=== PATIENT | male | born 1955 | race Caucasian/White ===

== ENCOUNTER 2023-02-16 06:59 | Emergency (ER) | payer MEDICARE ==
[2023-02-16] MEDS ORDERED: LORazepam 2 MG/ML SYR.(CARPUJECT) ONE ×2 (07:28→10:11)
[2023-02-16] MEDS ORDERED: dilTIAZem 25 MG/5 ML VIAL ONE (07:29)
[2023-02-16 07:38] LABS: #Basophils 0.1 thou/uL (0.0-0.2); #Eosinphils 0.1 thou/uL (0.0-0.7); #Monocytes 0.6 thou/uL (0.11-0.59); #Neutrophils 2.5 thou/uL (1.40-6.50); %Basophils 1.6 % (0.0-1.0); %Eosinophils 2.4 % (0.0-10.0); %Lymphocytes 42.3 % (21.0-51.0); %Monocytes 9.9 % (0.0-10.0); %Neutrophils 43.1 % (42.0-75.0); Mean Corpuscular Hemoglobin 34.3 pg (27.0-31.0); Mean Corpuscular Volume 100.9 fl (78.0-98.0); Mean Platelet Volume 9.4 fL (7.4-10.4); Platelet Count 201 10x3/uL (130-400); RBC Distribution Width 17.3 % (11.5-14.5); Red Blood Cell (RBC) Count 4.66 mill/uL (4.70-6.10); White Blood Cell (WBC) Count 5.7 10x3/uL (4.8-10.8)
[2023-02-16] MEDS ORDERED: Apixaban 5 MG TAB PO SCH (07:45)
[2023-02-16 08:05] LABS: ALT (SGPT) 122 U/L (8-55); AST (SGOT) 181 U/L (5-34); Albumin 3.7 g/dL (3.4-4.8); Alcohol 267.1 mg/dL (Less than 10); Alkaline Phosphatase 112 U/L (40-110); Anion Gap 17 mmol/L (10-20); BUN (Urea Nitrogen) 6 mg/dL (8.4-25.7); Bilirubin, Total 0.5 mg/dL (0.2-1.2); Calc. Creatinine Clearance 0 mL/min (70-130); Calcium 8.6 mg/dL (7.8-10.44); Carbon Dioxide 21 mmol/L (23-31); Chloride 108 mmol/L (98-107); Estimated GFR 100; Globulin 3.4 g/dL (2.4-3.5); Glucose 178 mg/dL (80-115); Potassium 3.9 mmol/L (3.5-5.1); Protein, Total 7.1 g/dL (5.8-8.1); Sodium 142 mmol/L (136-145)
[2023-02-16 08:07] LABS: Troponin I 0.065 ng/mL (< 0.028)
[2023-02-16] MEDS ORDERED: Aspirin 81 mg Enteric Coated Tablet ONE (10:56)
[2023-02-16] MEDS ORDERED: dilTIAZem 125 MG/25 ML SDV ONE (10:56)
== END 2023-02-16 11:57 | disposition short-term general hospital (02) ==
LOC: ERS 06:59
DX: I48.20 Chronic atrial fibrillation, unspecified (principal); F10.239 Alcohol dependence with withdrawal, unspecified; I10 Essential (primary) hypertension; F17.220 Nicotine dependence, chewing tobacco, uncomplicated; Y90.8 Blood alcohol level of 240 mg/100 ml or more
CPT/HCPCS: 71045; 80053; 80307; 83880; 84484; 85025; 93005; J2060; 36415

== ENCOUNTER 2023-07-24 09:50 | Outpatient (CLI) | payer MEDICARE | END 2023-07-24 09:51 | disposition home or self-care (01) | LOC: SCSRAD 09:50 | PROVIDERS: ATTEND Physician Assistant | DX: R05.3 Chronic cough (principal) | CPT/HCPCS: 71046 ==

== ENCOUNTER 2024-04-06 12:18 | Inpatient (IN) | payer MEDICARE ==
[2024-04-06 13:26] LABS: #Basophils 0.08 10x3/uL (0.0-0.2); %Basophils 1.1 % (0.0-1.0); %Eosinophils 5.2 % (0.0-10.0); %Lymphocytes 16.9 % (21.0-51.0); %Neutrophils 66.4 % (42.0-75.0); Hematocrit 37.6 % (42.0-52.0); Hemoglobin 12.3 g/dL (14.0-18.0); Mean Corpuscular HGB CONC 32.7 g/dL (32.0-36.0); Mean Corpuscular Hemoglobin 30.9 pg (27.0-31.0); Mean Corpuscular Volume 94.5 fL (78.0-98.0); Mean Platelet Volume 9.8 fL (7.4-10.4); Platelet Count 267 10x3/uL (130-400); RBC Distribution Width 15.1 % (11.5-14.5); Red Blood Cell (RBC) Count 3.98 mill/uL (4.70-6.10)
[2024-04-06] MEDS ORDERED: dilTIAZem 125 MG/25 ML SDV ONE (13:40)
[2024-04-06] MEDS ORDERED: Nitroglycerin 0.4 MG TAB 1 EACH ONE (13:40)
[2024-04-06] MEDS ORDERED: Enoxaparin 100 MG (1 mL) SYRINGE ONE (13:40)
[2024-04-06] MEDS ORDERED: Furosemide 40 MG (4 mL) VIAL ONE (13:40)
[2024-04-06] MEDS ORDERED: Aspirin Chewable 81 MG TAB ONE (13:40)
[2024-04-06 13:42] LABS: ALT (SGPT) 15 U/L (Less than 45); AST (SGOT) 33 U/L (11-34); Albumin 3.6 g/dL (3.1-4.5); Alkaline Phosphatase 87 U/L (40-110); Anion Gap 13 mmol/L (10-20); BUN (Urea Nitrogen) 8 mg/dL (8.4-25.7); Bilirubin, Total 1.1 mg/dL (0.3-1.2); Calc. Creatinine Clearance 0 mL/min (70-130); Calcium 8.8 mg/dL (7.8-10.44); Carbon Dioxide 25 mmol/L (23-31); Chloride 101 mmol/L (98-107); Estimated GFR 103; Globulin 3.8 g/dL (2.4-3.5); Glucose 120 mg/dL (80-115); Potassium 3.4 mmol/L (3.5-5.1); Protein, Total 7.4 g/dL (5.8-8.1); Sodium 136 mmol/L (136-145)
[2024-04-06 13:45] LABS: Troponin I 0.059 ng/mL (< 0.028)
[2024-04-06] MEDS ORDERED: Ondansetron ODT 4 MG TAB PO PRN (16:17)
[2024-04-06] MEDS ORDERED: Bisacodyl 5 MG TAB PO PRN (16:17)
[2024-04-06 17:24] LABS: Phosphorus 3.9 mg/dL (2.5-4.5)
[2024-04-06 17:25] LABS: Magnesium 1.6 mg/dL (1.6-2.6)
[2024-04-06 17:31] LABS: Troponin I 0.061 ng/mL (< 0.028)
[2024-04-06 18:00] LABS: Cardiac Risk 3.7 (Less than 4.5)
[2024-04-06] MEDS: Furosemide 40 MG (4 mL) VIAL SLOW IVP SCH (19:39)
[2024-04-06] MEDS: Carvedilol 6.25 MG TAB PO SCH (19:39)
[2024-04-06 19:43] VITALS: BMI 28.8
[2024-04-06 20:08] LABS: Hemoglobin A1c 5.6 % (4.0-6.0)
[2024-04-06 20:17] LABS: Troponin I 0.049 ng/mL (< 0.028)
[2024-04-06] MEDS: Acetaminophen 325 MG TAB PO PRN (21:07)
[2024-04-07] MEDS: Metoclopramide HCl 10 MG (2 mL) VIAL IVP SCH (03:15)
[2024-04-07] MEDS: hydrOXYzine 25 MG TAB PO SCH ×2 (03:15→22:07)
[2024-04-07] MEDS: Furosemide 40 MG (4 mL) VIAL SLOW IVP SCH (03:15)
[2024-04-07 03:18] LABS: #Basophils 0.09 10x3/uL (0.0-0.2); %Basophils 1.2 % (0.0-1.0); %Eosinophils 4.7 % (0.0-10.0); %Lymphocytes 15.6 % (21.0-51.0); %Monocytes 8.7 % (0.0-10.0); %Neutrophils 69.4 % (42.0-75.0); Hematocrit 35.8 % (42.0-52.0); Hemoglobin 11.5 g/dL (14.0-18.0); Mean Corpuscular HGB CONC 32.1 g/dL (32.0-36.0); Mean Corpuscular Hemoglobin 30.8 pg (27.0-31.0); Mean Platelet Volume 9.6 fL (7.4-10.4); Platelet Count 296 10x3/uL (130-400); RBC Distribution Width 15.2 % (11.5-14.5); Red Blood Cell (RBC) Count 3.73 mill/uL (4.70-6.10)
[2024-04-07 03:42] LABS: Troponin I 0.057 ng/mL (< 0.028)
[2024-04-07 03:43] LABS: ALT (SGPT) 13 U/L (Less than 45); AST (SGOT) 29 U/L (11-34); Albumin 3.3 g/dL (3.1-4.5); Alkaline Phosphatase 85 U/L (40-110); Anion Gap 15 mmol/L (10-20); BUN (Urea Nitrogen) 9 mg/dL (8.4-25.7); Bilirubin, Total 0.9 mg/dL (0.3-1.2); Calc. Creatinine Clearance 132 mL/min (70-130); Calcium 8.4 mg/dL (7.8-10.44); Carbon Dioxide 27 mmol/L (23-31); Chloride 99 mmol/L (98-107); Estimated GFR 98; Globulin 3.5 g/dL (2.4-3.5); Glucose 110 mg/dL (80-115); Protein, Total 6.8 g/dL (5.8-8.1); Sodium 138 mmol/L (136-145)
[2024-04-07] MEDS: Potassium Chloride 20 MEQ TAB PO ONE (04:05)
[2024-04-07] MEDS: Potassium Bicarbonate/Cit Ac 20 MEQ TAB PO SCH (04:30)
[2024-04-07 04:48] LABS: Influenza A by NAA Not Detected (NotDetected); Influenza B by NAA Not Detected (NotDetected); SARS-CoV-2 NAA Rapid Test Not Detected (NotDetected)
[2024-04-07] MEDS: Apixaban 5 MG TAB PO SCH (08:56)
[2024-04-07] MEDS: Empagliflozin 10 MG TAB PO SCH (08:56)
[2024-04-07] MEDS ORDERED: Dapagliflozin Propanediol 10 MG TAB PO SCH (09:00)
[2024-04-07] MEDS: Potassium Chloride 20 MEQ TAB PO SCH (10:55)
[2024-04-07] MEDS: Magnesium Oxide 400 MG TAB PO SCH (20:30)
[2024-04-08 05:41] LABS: #Basophils 0.09 10x3/uL (0.0-0.2); %Basophils 1.2 % (0.0-1.0); %Eosinophils 6.4 % (0.0-10.0); %Lymphocytes 21.6 % (21.0-51.0); %Monocytes 11.9 % (0.0-10.0); %Neutrophils 58.5 % (42.0-75.0); Hematocrit 36.9 % (42.0-52.0); Hemoglobin 12.1 g/dL (14.0-18.0); Mean Corpuscular HGB CONC 32.8 g/dL (32.0-36.0); Mean Corpuscular Hemoglobin 30.9 pg (27.0-31.0); Mean Corpuscular Volume 94.1 fL (78.0-98.0); Mean Platelet Volume 9.8 fL (7.4-10.4); Platelet Count 293 10x3/uL (130-400); Red Blood Cell (RBC) Count 3.92 mill/uL (4.70-6.10)
[2024-04-08 06:04] LABS: ALT (SGPT) 11 U/L (Less than 45); AST (SGOT) 27 U/L (11-34); Albumin 3.3 g/dL (3.1-4.5); Alkaline Phosphatase 82 U/L (40-110); Anion Gap 14 mmol/L (10-20); BUN (Urea Nitrogen) 8 mg/dL (8.4-25.7); Bilirubin, Total 0.8 mg/dL (0.3-1.2); Calc. Creatinine Clearance 138 mL/min (70-130); Calcium 8.6 mg/dL (7.8-10.44); Carbon Dioxide 27 mmol/L (23-31); Chloride 101 mmol/L (98-107); Estimated GFR 100; Globulin 3.7 g/dL (2.4-3.5); Glucose 103 mg/dL (80-115); Magnesium 1.9 mg/dL (1.6-2.6); Potassium 2.9 mmol/L (3.5-5.1); Sodium 139 mmol/L (136-145)
[2024-04-08] MEDS: Potassium Chloride 20 MEQ TAB PO SCH ×2 (08:49→17:02)
[2024-04-08] MEDS: Amiodarone 200 MG TAB PO SCH ×2 (10:02→20:02)
[2024-04-08] MEDS: Melatonin 3 MG TAB PO PRN (23:38)
[2024-04-09 05:22] LABS: #Basophils 0.11 10x3/uL (0.0-0.2); %Basophils 1.4 % (0.0-1.0); %Eosinophils 8.3 % (0.0-10.0); %Lymphocytes 22.1 % (21.0-51.0); %Neutrophils 58.6 % (42.0-75.0); Hemoglobin 12.4 g/dL (14.0-18.0); Mean Corpuscular HGB CONC 33.5 g/dL (32.0-36.0); Mean Corpuscular Volume 92.5 fL (78.0-98.0); Mean Platelet Volume 9.8 fL (7.4-10.4); Platelet Count 324 10x3/uL (130-400); RBC Distribution Width 14.6 % (11.5-14.5)
[2024-04-09 05:53] LABS: ALT (SGPT) 12 U/L (Less than 45); AST (SGOT) 27 U/L (11-34); Albumin 3.3 g/dL (3.1-4.5); Alkaline Phosphatase 84 U/L (40-110); Anion Gap 16 mmol/L (10-20); BUN (Urea Nitrogen) 11 mg/dL (8.4-25.7); Bilirubin, Total 0.8 mg/dL (0.3-1.2); Calc. Creatinine Clearance 114 mL/min (70-130); Calcium 8.4 mg/dL (7.8-10.44); Carbon Dioxide 25 mmol/L (23-31); Chloride 100 mmol/L (98-107); Estimated GFR 95; Globulin 3.8 g/dL (2.4-3.5); Glucose 103 mg/dL (80-115); Potassium 3.1 mmol/L (3.5-5.1); Protein, Total 7.1 g/dL (5.8-8.1); Sodium 138 mmol/L (136-145)
[2024-04-09] MEDS: Potassium Chloride 20 MEQ TAB PO SCH (08:19)
[2024-04-09] MEDS: Ibuprofen 800 MG TAB PO PRN (17:54)
[2024-04-10] MEDS: hydrOXYzine 25 MG TAB PO SCH (04:21)
[2024-04-10 06:02] LABS: #Basophils 0.12 10x3/uL (0.0-0.2); %Basophils 1.4 % (0.0-1.0); %Eosinophils 8.1 % (0.0-10.0); %Lymphocytes 18.4 % (21.0-51.0); %Monocytes 7.7 % (0.0-10.0); %Neutrophils 63.8 % (42.0-75.0); Hematocrit 42.3 % (42.0-52.0); Hemoglobin 13.2 g/dL (14.0-18.0); Mean Corpuscular HGB CONC 31.2 g/dL (32.0-36.0); Mean Corpuscular Hemoglobin 29.7 pg (27.0-31.0); Mean Corpuscular Volume 95.3 fL (78.0-98.0); Mean Platelet Volume 9.7 fL (7.4-10.4); Platelet Count 377 10x3/uL (130-400); RBC Distribution Width 14.6 % (11.5-14.5); Red Blood Cell (RBC) Count 4.44 mill/uL (4.70-6.10)
[2024-04-10 06:31] LABS: ALT (SGPT) 13 U/L (Less than 45); AST (SGOT) 34 U/L (11-34); Albumin 3.7 g/dL (3.1-4.5); Alkaline Phosphatase 93 U/L (40-110); Anion Gap 17 mmol/L (10-20); BUN (Urea Nitrogen) 12 mg/dL (8.4-25.7); Bilirubin, Total 0.6 mg/dL (0.3-1.2); Calc. Creatinine Clearance 99 mL/min (70-130); Calcium 8.8 mg/dL (7.8-10.44); Carbon Dioxide 26 mmol/L (23-31); Chloride 98 mmol/L (98-107); Estimated GFR 88; Globulin 4.3 g/dL (2.4-3.5); Glucose 102 mg/dL (80-115); Potassium 3.2 mmol/L (3.5-5.1); Sodium 138 mmol/L (136-145)
[2024-04-11 06:34] LABS: #Basophils 0.14 10x3/uL (0.0-0.2); %Basophils 1.8 % (0.0-1.0); %Eosinophils 9.9 % (0.0-10.0); %Lymphocytes 21.9 % (21.0-51.0); %Monocytes 10.3 % (0.0-10.0); %Neutrophils 55.6 % (42.0-75.0); Hematocrit 39.5 % (42.0-52.0); Hemoglobin 12.9 g/dL (14.0-18.0); Mean Corpuscular HGB CONC 32.7 g/dL (32.0-36.0); Mean Corpuscular Hemoglobin 30.9 pg (27.0-31.0); Mean Corpuscular Volume 94.5 fL (78.0-98.0); Mean Platelet Volume 9.6 fL (7.4-10.4); Platelet Count 354 10x3/uL (130-400); RBC Distribution Width 14.7 % (11.5-14.5); Red Blood Cell (RBC) Count 4.18 mill/uL (4.70-6.10)
[2024-04-11 06:52] LABS: ALT (SGPT) 14 U/L (Less than 45); AST (SGOT) 53 U/L (11-34); Albumin 3.5 g/dL (3.1-4.5); Alkaline Phosphatase 91 U/L (40-110); Anion Gap 14 mmol/L (10-20); BUN (Urea Nitrogen) 15 mg/dL (8.4-25.7); Bilirubin, Total 0.5 mg/dL (0.3-1.2); Calc. Creatinine Clearance 96 mL/min (70-130); Calcium 8.9 mg/dL (7.8-10.44); Carbon Dioxide 25 mmol/L (23-31); Chloride 101 mmol/L (98-107); Estimated GFR 83; Globulin 4.2 g/dL (2.4-3.5); Glucose 124 mg/dL (80-115); Potassium 3.4 mmol/L (3.5-5.1); Protein, Total 7.7 g/dL (5.8-8.1); Sodium 137 mmol/L (136-145)
[2024-04-11] MEDS ORDERED: Lidocaine 1% PF 5 ML VIAL ONE (09:50)
[2024-04-11] MEDS ORDERED: PROPOFOL 200 MG/20 ML VIAL ONE (09:50)
[2024-04-11] MEDS: Furosemide 20 MG TAB PO SCH (11:52)
[2024-04-11] MEDS: Valsartan 80 MG TAB PO SCH (11:53)
[2024-04-11] MEDS: Atorvastatin Calcium 40 MG TAB PO SCH (20:53)
[2024-04-12 05:53] LABS: %Basophils 1.2 % (0.0-1.0); %Eosinophils 7.7 % (0.0-10.0); %Lymphocytes 23.6 % (21.0-51.0); %Monocytes 8.9 % (0.0-10.0); Hematocrit 38.9 % (42.0-52.0); Hemoglobin 12.5 g/dL (14.0-18.0); Mean Corpuscular HGB CONC 32.1 g/dL (32.0-36.0); Mean Corpuscular Volume 93.3 fL (78.0-98.0); Mean Platelet Volume 9.6 fL (7.4-10.4); Platelet Count 366 10x3/uL (130-400); RBC Distribution Width 14.6 % (11.5-14.5); Red Blood Cell (RBC) Count 4.17 mill/uL (4.70-6.10)
[2024-04-12 06:11] LABS: ALT (SGPT) 14 U/L (Less than 45); AST (SGOT) 33 U/L (11-34); Albumin 3.5 g/dL (3.1-4.5); Alkaline Phosphatase 87 U/L (40-110); Anion Gap 14 mmol/L (10-20); BUN (Urea Nitrogen) 14 mg/dL (8.4-25.7); Bilirubin, Total 0.7 mg/dL (0.3-1.2); Calc. Creatinine Clearance 106 mL/min (70-130); Carbon Dioxide 23 mmol/L (23-31); Chloride 103 mmol/L (98-107); Estimated GFR 94; Globulin 4.1 g/dL (2.4-3.5); Glucose 104 mg/dL (80-115); Potassium 3.7 mmol/L (3.5-5.1); Protein, Total 7.6 g/dL (5.8-8.1); Sodium 136 mmol/L (136-145)
[2024-04-12 11:56] VITALS: BP 110/66; TEMP 98.4
== END 2024-04-12 13:38 | disposition home or self-care (01) | DRG 291 ==
LOC: ERS 12:18 → OBS 16:18
PROVIDERS: ADMIT Family Medicine; ATTEND Family Medicine
PROC: 5A2204Z Restoration of Cardiac Rhythm, Single (ICD-10-PCS; principal; 2024-04-11)
PROC: B245ZZ4 Ultrasonography of Left Heart, Transesophageal (ICD-10-PCS; 2024-04-11)
DX: I11.0 Hypertensive heart disease with heart failure (principal); I50.23 Acute on chronic systolic (congestive) heart failure; I48.19 Other persistent atrial fibrillation; I42.8 Other cardiomyopathies; E87.6 Hypokalemia; D64.9 Anemia, unspecified; F10.21 Alcohol dependence, in remission; R79.89 Other specified abnormal findings of blood chemistry; E83.42 Hypomagnesemia; F41.9 Anxiety disorder, unspecified; G47.00 Insomnia, unspecified; F32.A Depression, unspecified; Z80.0 Family history of malignant neoplasm of digestive organs; Z87.891 Personal history of nicotine dependence; Z86.73 Personal history of transient ischemic attack (TIA), and cerebral infarction without residual deficits
CPT/HCPCS: 36415; 71045; 80053; 80061; 83036; 83735; 83880; 84100; 84443; 84484; 85025; 92960; 93005; 93010; 93306; 93312; 94760; 96372; 96374; 96375; 97139; J1650; J1940; J2704; J2765